=== PATIENT | male | born 1995 | race Two or more races ===

== ENCOUNTER 2018-10-27 23:00 | Emergency (ER) | payer OTHER ==
[~2018-10-27] VITALS: Ht 166.4 cm; Wt 74.2 kg
[2018-10-27 23:05] VITALS: BP 164/103
--- NOTE | 2018-10-27 23:13 | NUR ---
PT ARRIVES TO ED AFTER HAVING ANOSE BLEED FROM BOTH NOSTRILS. PT WAS SITTING IN CAR WHEN HE BACAME DIZZY AND STARTED HAVING NOSEBLEED AND FELT SOB. PT DENIES TRAUMA OR ANY OTHER RECENT MEDICAL HX. PT ABLE TO AMBUALTE SAFELY AT THIS TIME. PT CONNECTED TO MONITORS AND CALL LIGHT IN REACH. AWAITING FURTHER ORDERS.
[2018-10-27 23:41] LABS: BASOPHILS # (AUTO) 0.03 x10^3/uL (0-0.1); BASOPHILS % (AUTO) 0 % (0-1); EOSINOPHILS # (AUTO) 0.16 x10^3/uL (0-0.4); EOSINOPHILS % (AUTO) 2 % (1-7); LYMPHOCYTES # (AUTO) 3.16 x10^3/uL (1-3.4); LYMPHOCYTES % (AUTO) 29 % (22-44); MD NO; MEAN CORPUSCULAR HEMOGLOBIN 29.5 pg (27.5-34.5); MEAN CORPUSCULAR HGB CONC 34.3 g/dL (33.2-36.2); MEAN PLATELET VOLUME 8.4 fL (7.4-10.4); MONOCYTES # (AUTO) 0.78 x10^3/uL (0.2-0.8); MONOCYTES % (AUTO) 7 % (2-9); NEUTROPHILS # (AUTO) 6.89 x10^3/uL (1.8-6.8); NEUTROPHILS % (AUTO) 63 % (42-75); PLATELET COUNT 273 x10^3/uL (130-400); RED BLOOD COUNT 5.51 x10^6/uL (4.38-5.82); RED CELL DISTRIBUTION WIDTH 12.6 % (9.4-14.8)
[2018-10-27 23:51] LABS: INTERNATIONAL NORMALIZED RATIO 1.02 (0.93-1.1); PROTHROMBIN TIME 10.7 Seconds (9.6-11.5)
[2018-10-27 23:53] LABS: ALANINE AMINOTRANSFERASE 27 U/L (12-78); ALBUMIN 4.6 g/dL (3.4-5.0); ANION GAP 7 mmol/L (5-15); CALCIUM 9.4 mg/dL (8.5-10.1); CHLORIDE 108 mmol/L (98-107); CREATININE 1.01 mg/dL (0.7-1.3)
[2018-10-27 23:55] LABS: ALKALINE PHOSPHATASE 109 U/L (45-117); BILIRUBIN,TOTAL 0.1 mg/dL (0.2-1.0); TOTAL PROTEIN 8.4 g/dL (6.4-8.2)
--- NOTE | 2018-10-28 00:25 | NUR ---
PT REMAINS CALM AND RESTING
--- NOTE | 2018-10-28 00:56 | NUR ---
DC EDUCATION PROVIDED, PT DEMONSTRATES UNDERSTANDING. PT AMBULATED STEADILY TO DC WITH RN AND FRIEND
== END 2018-10-28 00:58 | disposition home or self-care (01) ==
LOC: ED 23:26
DX: R04.0 Epistaxis (principal); R42 Dizziness and giddiness; R06.02 Shortness of breath
CPT/HCPCS: 36415; 80053; 85025; 85610; 85730; 93005; 99284

== ENCOUNTER 2018-11-02 23:28 | Emergency (ER) | payer OTHER ==
[~2018-11-02] VITALS: Ht 167.6 cm; Wt 73.0 kg
[2018-11-03 01:49] VITALS: BP 129/74
== END 2018-11-03 01:50 | disposition home or self-care (01) ==
LOC: ED 11-03 00:40
DX: R04.0 Epistaxis (principal)
CPT/HCPCS: 99281